=== PATIENT | male | born 1940 | race Caucasian/White ===

== ENCOUNTER → 2021-11-16 12:42 | Outpatient (CLI) | payer MEDICARE, OTHER, SELFPAY ==
--- NOTE | 2021-11-16 | DI.MG.S_ITS ---
MALE BILATERAL DIGITAL DIAGNOSTIC MAMMOGRAM 3D/2D: 11/16/2021 CLINICAL: Baseline exam. Bilateral breast pain and swelling. No prior exams were available for comparison. There is moderate left-sided gynecomastia in the retroareolar region corresponding to the palpable abnormality. There is also mild right-sided gynecomastia that correlates as palpated. No suspicious mass is identified. No significant masses, calcifications, or other findings are seen in either breast. IMPRESSION: BENIGN Asymmetric left greater than right gynecomastia is seen that corresponds to the patient's reported palpable anormality. Recommend clinical correlation and workup for causes of gynecomastia. There is no mammographic evidence of malignancy. This exam was interpreted at Station ID: [id number]. NOTE: For mammograms, a report in lay terms will be sent to the patient. Approximately 15% of breast malignancies will not be visualized mammographically. In the management of a palpable breast mass, a negative mammogram must not discourage biopsy of a clinically suspicious lesion. Electronically Signed By: Alberto [email or web address]/tim:11/16/2021 13:36:39 letter sent: Clinical Evaluation ACR BI-RADS Category 2: Benign Finding(s) 3342F
== END ==
PROVIDERS: PCP Family Medicine; Referring Provider Family Medicine; Visit Provider Family Medicine
DX: N62 Hypertrophy of breast (principal); N64.4 Mastodynia
CPT/HCPCS: 77066; G0279